=== PATIENT | female | born 1955 | race Caucasian/White ===

== ENCOUNTER → 2024-12-19 | Outpatient (CLI) | payer MEDICARE, MEDICAID, SELFPAY ==
--- NOTE | 2024-12-19 10:58 | XR_ITS ---
Examination: Lumbar spine, 5 views Technique: Lumbar spine AP, lateral, coned lateral lower lumbar spine, bilateral obliques 5 views Exam date and time: December 19, 2024 1129 hrs. Indications: Back pain years. Findings: Lumbar levoscoliosis 12 degrees Moderate osteopenia Orthopedic hardware overlying the sacral regions Diffuse advanced facet arthropathy No lumbar fracture Mild to moderate disc narrowing L3-L4, L4-L5 No spondylolisthesis Impression: Mild to moderate degenerative disc disease L3-L4, L4-L5 with spinal stenosis
== END | disposition home or self-care (01) ==
PROVIDERS: PCP Family Medicine; Referring Provider Physician Assistant; Visit Provider Physician Assistant
DX: M51.369 Other intervertebral disc degeneration, lumbar region without mention of lumbar back pain or lower extremity pain (principal); M48.061 Spinal stenosis, lumbar region without neurogenic claudication
CPT/HCPCS: 72110

== ENCOUNTER → 2025-02-28 | Outpatient (CLI) | payer MEDICARE, MEDICAID, SELFPAY ==
--- NOTE | 2025-02-28 08:21 | XR_ITS ---
Examination: Bilateral hips, AP pelvis, 5 views Technique: AP, lateral views both hips, AP pelvis, 5 views Exam date and time: February 28, 2025 0831 hours INDICATIONS: Bilateral hip pain beginning 10 minutes ago FINDINGS: Prominent osteopenia No right or left hip fracture or hip dislocation No avascular necrosis Orthopedic screws overlie the sacrum IMPRESSION: No hip fractures or significant hip arthritic change
== END | disposition home or self-care (01) ==
LOC: CDIM 08:14
PROVIDERS: Referring Provider Physician Assistant; Visit Provider Physician Assistant
DX: M16.0 Bilateral primary osteoarthritis of hip (principal)
CPT/HCPCS: 73523

== ENCOUNTER → 2025-04-25 | Outpatient (CLI) | payer MEDICARE, MEDICAID, SELFPAY ==
--- NOTE | 2025-04-25 | XR_ITS ---
Examination: Lumbar spine, 5 views Technique: Lumbar spine AP, lateral, coned lateral lower lumbar spine, bilateral obliques 5 views Exam date and time: April 25, 2025 1122 hours Comparison December 26, 2024 INDICATIONS: Patient fell 2 weeks ago with injury of the lower back, lower back pain. FINDINGS: Significant osteopenia Lumbar levoscoliosis 15 degrees Orthopedic screws traverse the sacrum bilaterally No acute lumbar fracture Mild to moderate diffuse lumbar disc narrowing IMPRESSION: No acute lumbar fracture
== END | disposition home or self-care (01) ==
PROVIDERS: Referring Provider Physician Assistant; Visit Provider Physician Assistant
DX: M54.50 Low back pain, unspecified (principal)
CPT/HCPCS: 72110

== ENCOUNTER 2025-05-08 20:49 | Emergency (ER) | payer MEDICARE, MEDICAID, SELFPAY ==
[2025-05-08 20:52] VITALS: BMI 23.1
[2025-05-08 21:40] VITALS: BP 104/69; PULSE 74; RESP 19; TEMP 37; O2SAT 97
--- NOTE | 2025-05-09 01:28 | XR_ITS ---
Examination: Tibia-Fibula, left , 2 views Technique: Tibia-fibula AP lateral 2 views Date and time of exam: May 09, 2025 at 0129 hours MEDICATIONS: Patient fell last night with injury and laceration to the lower leg FINDINGS: Air densities in the soft tissue upper aspect of the lower leg adjacent to the medial side of the proximal tibia No fracture No foreign body IMPRESSION: No opaque foreign body
--- NOTE | 2025-05-09 01:30 | PD.EDFALL ---
ED Fall Injury RME/HPI General Chief Complaint: Fall Stated Complaint: FALL, LAC TO LEFT LEG, HIT FACE ON TUB, DIZZY Arrival date/time: 05/08/25 20:49 RME / HPI RME / HPI Narrative: 69-year-old female presents to the ED with a complaint of left lower extremity pain, neck pain and low back pain secondary to an injury she sustained at home. Patient states that she was getting in or out of the bathtub when she slipped and fell on the tub enclosure railing, causing her to fall back into the bathtub. She is complaining of a laceration left lower leg in the upper medial tibia area. She denies any numbness or tingling to her extremities. Related Data Allergies Allergy/AdvReac Type Severity Reaction Status Date / Time ketorolac (From Toradol) Allergy Verified 05/08/25 20:52 morphine Allergy Verified 05/08/25 20:52 pentazocine (From Talwin) Allergy Verified 05/08/25 20:52 Review of Systems Review of Systems Systems Reviewed: All systems reviewed, normal except as documented Past Medical History Social History SMOKING STATUS: Never smoker ED Exam Narrative Physical exam: A&O, afebrile and non-toxic appearing 69-year-old female, no acute distress. Lung are clear, RRR, Abdomen is soft, nontender, and non-distended. Left proximal medial tibia with tenderness and Steri-Stripped superficial laceration. No tenderness to the ankle or foot, no significant tenderness to the knee or femur. Cervical spine tenderness and lumbar spine tenderness as well as left sciatic notch tenderness is noted on exam. CMS intact to all 4 extremities. Moves all other extremities well. Course Orders Category Date Time Status CT cervical spine wo con Stat Exams 05/09/25 01:[address] lumbar spine wo con Stat Exams 05/09/25 01:28 Ordered XR tibia fibula LT 2V Stat Exams 05/09/25 01:28 Ordered Vital Signs Vital signs: Vital Signs Temperature 98.6 F 05/08/25 21:40 Pulse Rate 74 05/08/25 21:40 Respiratory Rate 19 05/08/25 21:40 Blood Pressure 104/69 05/08/25 21:40 Pulse Oximetry (%) 97 05/08/25 21:40 Oxygen Delivery Method Room Air 05/08/25 21:40 Discharge Plan Prescriptions/Referrals Referrals: No Primary/Family,Physician [Primary Care Provider] - In 1 week Patient/Caregiver Discharge Instructions Print Language: [place]
--- NOTE | 2025-05-09 03:00 | PC.NURSE ---
CALLED PT IN ER LOBBY AND OUTSIDE AND NO ANSWER
--- NOTE | 2025-05-09 03:10 | PC.NURSE ---
CALLED PT IN ER LOBBY AND OUTSIDE AND NO ANSWER
--- NOTE | 2025-05-09 03:19 | PC.NURSE ---
CALLED PT IN ER LOBBY AND OUTSIDE AND NO ANSWER
== END 2025-05-09 03:20 | disposition left against medical advice (07) ==
LOC: SERX 22:01
PROVIDERS: Emergency Provider Emergency Medicine
DX: S81.812A Laceration without foreign body, left lower leg, initial encounter (principal); W01.198A Fall on same level from slipping, tripping and stumbling with subsequent striking against other object, initial encounter; Y92.009 Unspecified place in unspecified non-institutional (private) residence as the place of occurrence of the external cause; Z53.29 Procedure and treatment not carried out because of patient's decision for other reasons
CPT/HCPCS: 73590; 99283